=== PATIENT | male | born 1965 | race Caucasian/White ===

== ENCOUNTER 2021-11-25 12:35 | Emergency (ER) | payer BC, SELFPAY ==
[2021-11-25] MEDS ORDERED: Cephalexin 250 MG CAP ONE (13:01)
[2021-11-25] MEDS ORDERED: Bacitracin 1 PK ONE (13:22)
== END 2021-11-25 13:35 | disposition home or self-care (01) ==
LOC: MADERS 12:35
DX: S61.431A Puncture wound without foreign body of right hand, initial encounter (principal); E11.9 Type 2 diabetes mellitus without complications; E03.9 Hypothyroidism, unspecified; E78.5 Hyperlipidemia, unspecified; I10 Essential (primary) hypertension; W26.0XXA Contact with knife, initial encounter
CPT/HCPCS: 99283